=== PATIENT | male | born 2000 | race Caucasian/White ===

== ENCOUNTER 2020-03-18 15:21 | Emergency (ER) | payer SELFPAY ==
[~2020-03-18] VITALS: Ht 170.2 cm; Wt 63.5 kg
--- NOTE | 2020-03-18 16:04 | ED Lower Extremity ---
General Chief Complaint: Lower Extremity Stated Complaint: R ANKLE INJ Source: patient Exam Limitations: no limitations History of Present Illness Date Seen by Provider: Mar 18, 2020 Time Seen by Provider: 16:02 Initial Comments To ER with pain over the lateral aspect of the right foot. This began after he twisted his ankle while playing basketball yesterday. He has difficulty with ambulation since then. Onset: just prior to arrival Severity: moderate Pain/Injury Location: left foot Method of Injury: sports injury Modifying Factors: Worse With Movement Allergies and Home Medications Patient Home Medication List Home Medication List Reviewed: Yes Review of Systems Constitutional: see HPI EENTM: see HPI Respiratory: no symptoms reported Cardiovascular: no symptoms reported Genitourinary: no symptoms reported Musculoskeletal: see HPI Skin: no symptoms reported Psychiatric/Neurological: No Symptoms Reported Past Wrvgofm-Oojerr-Ciorin Hx Patient Social History Recent Foreign Travel: No Contact w/Someone Who Travel: No Physical Exam Vital Signs Vital Signs - First Documented 03/18/20 15:52 Temp 36.8 Pulse 84 Resp 18 B/P (MAP) 107/71 Capillary Refill : Height, Weight, BMI Height: '" Weight: lbs. oz. kg; BMI Method: General Appearance: WD/WN, no apparent distress Respiratory: no respiratory distress, no accessory muscle use Hips: bilateral hip non-tender, bilateral hip normal inspection, bilateral hip normal range of motion Legs: bilateral leg non-tender, bilateral leg normal inspection, bilateral leg normal range of motion Knees: bilateral knee non-tender, bilateral knee normal inspection, bilateral knee normal range of motion Ankles: bilateral ankle non-tender, bilateral ankle normal inspection, bilateral ankle normal range of motion; left ankle other (there is no tenderness to palpation over the right lateral malleolus no deformity. There is swelling over the dorsal aspect of the foot over the third fourth and fifth proximal metatarsals.) Feet: bilateral foot non-tender, bilateral foot normal inspection, bilateral foot normal range of motion, bilateral foot other (strong dorsalis pedis pulses palpable) Neurologic/Psychiatric: alert, normal mood/affect, oriented x 3 Skin: normal color, warm/dry Progress/Results/Core Measures Results/Orders My Orders Orders - ERIK SENIOR APRN Foot, Right, 3 View (03/18/20 16:01) Vital Signs/I&O 03/18/20 15:52 Temp 36.8 Pulse 84 Resp 18 B/P (MAP) 107/71 Departure Impression Primary Impression: Ankle sprain Qualified Codes: S93.401A - Sprain of unspecified ligament of right ankle, initial encounter Disposition: 01 HOME, SELF-CARE Condition: Stable Departure-Patient Inst. Decision time for Depature: 16:04 Patient Instructions: Ankle Sprain (DC) Add. Discharge Instructions: 1. Keep the foot elevated as much as possible for the next 2-3 days. Wear the brace for the next 2-3 days. Use the crutches as needed for pain control. When you are able to put weight on the foot without significant pain then you can stop using the crutches. Tylenol and ibuprofen for pain. All discharge instructions reviewed with patient and/or family. Voiced understanding. Work/School Note: Work Release Form Date Seen in the Emergency Department: Mar 18, 2020 Return to Work: Mar 19, 2020 ERIK SENIOR APRN Mar 18, 2020 16:04
--- NOTE | 2020-03-18 16:50 | Diagnostic Imaging Report ---
INDICATION: Injury, pain. FINDINGS: Three-view right foot showed no fracture, dislocation, or acute-appearing articular irregularity. No gas or foreign body. IMPRESSION: Unremarkable three-view right foot. Dictated by: Dictated on workstation # [id number]
== END 2020-03-18 16:52 | disposition home or self-care (01) ==
LOC: ER 15:25
DX: S93.492A Sprain of other ligament of left ankle, initial encounter (principal); X50.1XXA Overexertion from prolonged static or awkward postures, initial encounter; Y93.67 Activity, basketball
CPT/HCPCS: 73630; 99282; L4350

== ENCOUNTER 2020-06-25 13:25 | Emergency (ER) | payer SELFPAY ==
[~2020-06-25] VITALS: Ht 170 cm; Wt 61.0 kg
--- NOTE | 2020-06-25 13:58 | ED GI ---
General Chief Complaint: Chest Wall Stated Complaint: RIB AREA PAIN Nursing Triage Note: ARRIVED VIA AMB WITH COMPLAINTS OF LEFT LOWER CHEST PAIN THAT STARTED X1 WEEK AGO History of Present Illness Date Seen by Provider: Jun 25, 2020 Time Seen by Provider: 13:30 Initial Comments 19-year-old male presents for left upper abdominal pain. present for 1 week, hurts into ribs and unable to lie on his left side. Denies any injuries, fall, mono, n/v/d. He was doing heaving lifting at work, approximately 2 weeks ago. He has not taken any fccy-bbe-rimvptn medications for pain, no previous abdominal surgeries. He denies any reflux or pain when urinating. No pain radiating from the site and no CVA tenderness. Patient presented because he looked it up on internet and worried about his spleen. No history of COVID-19, Cough or URI. Timing/Duration: 1 Week Severity/Quality: Mild Location: LUQ Radiation: No Radiation Associated Symptoms: No Back Pain, No Fever/Chills, No Fatigue, No Headache, No Heartburn, No Nausea/Vomiting, No Shortness of Air; Swelling/Mass in Abdomen (LUQ) Allergies and Home Medications Allergies Coded Allergies: No Known Drug Allergies (Unverified , 06/25/20) Patient Home Medication List Home Medication List Reviewed: Yes Review of Systems Review of Systems Constitutional: no symptoms reported, see HPI; No weight gain, No weight loss Respiratory: See HPI; Denies Cough, Denies Shortness of Air; Other (left anterior lower rib pain) Cardiovascular: No Symptoms Reported, See HPI Gastrointestinal: See HPI, Abdominal Pain; Denies Constipated, Denies Diarrhea, Denies Nausea, Denies Poor Appetite, Denies Poor Fluid Intake, Denies Vomiting Musculoskeletal: no symptoms reported, see HPI Skin: no symptoms reported, see HPI All Other Systems Reviewed Negative Unless Noted: Yes Past [place]-Lnpgof-Wggfrv Hx Past Med/Social Hx: Reviewed Nursing Past Med/Soc Hx Patient Social History Alcohol Use: Denies Use Drug of Choice: POT Smoking Status: Current Everyday Smoker Type Used: Cigarettes 2nd Hand Smoke Exposure: Yes Recent Infectious Disease Expo: No Recent Hopitalizations: No Seasonal Allergies Seasonal Allergies: No Past Medical History Surgeries: No Respiratory: No Cardiac: No Neurological: No Genitourinary: No Gastrointestinal: No Musculoskeletal: No Endocrine: No HEENT: No Cancer: No Psychosocial: No Integumentary: No Physical Exam Vital Signs Vital Signs - First Documented 06/25/20 13:30 Temp 35.8 Pulse 100 Resp 16 B/P (MAP) 117/74 O2 Delivery Room Air Capillary Refill : Height/Weight/BMI Height: '" Weight: lbs. oz. kg; 21.00 BMI Method: General Appearance: WD/WN, no apparent distress HEENT: PERRL/EOMI, normal ENT inspection, TMs normal, pharynx normal Neck: non-tender, full range of motion, supple, normal inspection Respiratory: lungs clear, normal breath sounds, no respiratory distress Cardiovascular: normal peripheral pulses, regular rate, rhythm Gastrointestinal: normal bowel sounds, soft, tenderness (LUQ), hernia (questionable), mass (along left lower costal boarder) Extremities: normal range of motion, non-tender Back: normal inspection, no CVA tenderness; No muscle spasm, No vertebral tenderness Neurologic/Psychiatric: no motor/sensory deficits, alert, normal mood/affect, oriented x 3 Progress/Results/Core Measures Results/Orders My Orders Orders - VANESSA LUCAS Ct Abdomen/Pelvis Wo (06/25/20 13:45) Ibuprofen Tablet (Motrin Tablet) (06/25/20 14:28) Vital Signs/I&O 06/25/20 13:30 Temp 35.8 Pulse 100 Resp 16 B/P (MAP) 117/74 O2 Delivery Room Air Departure Impression Primary Impression: Abdominal muscle strain Qualified Codes: S39.011A - Strain of muscle, fascia and tendon of abdomen, initial encounter Additional Impression: Costochondral chest pain Disposition: 01 HOME, SELF-CARE Condition: Improved Departure-Patient Inst. Decision time for Depature: 14:15 Referrals: [facility] [place] NO,LOCAL PHYSICIAN (PCP) Primary Care Physician Patient Instructions: Pleuritic Chest Pain (DC), Costochondritis (DC) Add. Discharge Instructions: Alternate heat and ice to area of tenderness for 20 minutes at a time. Take ibuprofen 600 mg alternating with Tylenol 650 mg every 4 hours for pain. Follow-up at [facility] if symptoms are not improving or worsen. Return to the emergency department for new, urgent healthcare needs. All discharge instructions reviewed with patient and/or family. Voiced understanding. VANESSA LUCAS Jun 25, 2020 13:58
--- NOTE | 2020-06-25 14:06 | Diagnostic Imaging Report ---
EXAMINATION: CT Abdomen Pelvis without contrast. TECHNIQUE: Multiple contiguous axial images were obtained through the abdomen and pelvis without the use of intravenous contrast. All CT scans use one or more of the following dose optimizing techniques: automated exposure control, MA and/or KvP adjustment based on a patient size and exam type, or iterative reconstruction. HISTORY: Right upper quadrant pain COMPARISON: None available. FINDINGS: Limited views of the lower thorax are unremarkable. The liver is normal without focal lesion. There is no biliary ductal dilation. Gallbladder is normal. Pancreas is normal. Spleen is normal. Adrenal glands are normal. The kidneys are normal. There is no hydronephrosis. Urinary bladder is normal. Visualized bowel is normal in caliber without obstruction or inflammation. No free fluid or air. No abdominal or pelvic lymphadenopathy. Aorta is normal in caliber without aneurysm. There are no suspicious osseus lesions. No CT correlate is seen at the radiographic marker. IMPRESSION: 1. No acute abnormality in the abdomen or pelvis, no abnormality at the radiographic marker. Dictated by: Dictated on workstation # [id number]
[2020-06-25] MEDS ORDERED: IBUPROFEN 800 MG (MOTRIN) TAB PO STA (14:28)
== END 2020-06-25 14:37 | disposition home or self-care (01) ==
LOC: EDUNIT# 13:25 → ER 13:28
DX: S39.011A Strain of muscle, fascia and tendon of abdomen, initial encounter (principal); M94.0 Chondrocostal junction syndrome [Tietze]; F17.210 Nicotine dependence, cigarettes, uncomplicated; X50.0XXA Overexertion from strenuous movement or load, initial encounter
CPT/HCPCS: 74176; 99283

== ENCOUNTER 2021-02-17 10:16 | Emergency (ER) | payer SELFPAY ==
[~2021-02-17] VITALS: Ht 170 cm; Wt 58.9 kg
[2021-02-17] MEDS ORDERED: IBUPROFEN 600 MG (MOTRIN) TAB PO ONE (10:30)
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
[2021-02-17] MEDS ORDERED: AUGMENTIN 875 MG TAB (AMOXICILLIN/CLAVULANATE) PO SCH (10:45)
--- NOTE | 2021-02-17 10:58 | Diagnostic Imaging Report ---
EXAMINATION: Right hand at 10:38 a.m. INDICATION: Injury, hand pain. Three views were obtained. This exam is less than optimal due to slight motion artifact. There are no prior studies available for comparison. FINDINGS: There is no fracture, dislocation, or acute bony abnormality evident. The lateral view does show soft tissue edema along the dorsal aspect of the metacarpal heads. There is no radiopaque foreign body identified, however. IMPRESSION: There is soft tissue edema along the dorsal aspect of the metacarpal heads, but there is no evidence for a fracture or for a radiopaque foreign body. Dictated by: Dictated on workstation # [id number]
--- NOTE | 2021-02-17 11:00 | Diagnostic Imaging Report ---
INDICATION: Ankle pain after injury. EXAMINATION: Left ankle, 02/17/2021. FINDINGS: Three views of the ankle. There is soft tissue swelling laterally. No displaced fracture or dislocation. Ankle mortise and talar dome are intact. IMPRESSION: 1. Diffuse soft tissue swelling with no underlying fractures identified. If pain persists, 7-10 day follow-up recommended. Dictated by: Dictated on workstation # [id number]
[2021-02-17] MEDS ORDERED: VANCOMYCIN INJECTION 1,000 MG in NS (IVPB) 250 ML IV ONE (11:30)
[2021-02-17] MEDS ORDERED: NICOTINE 21 MG (NICODERM) PATCH TD ONE (11:30)
[2021-02-17 11:50] LABS: BASOPHILS % (AUTO) 0 % (0-10); EOSINOPHILS % (AUTO) 0 % (0-10); HEMATOCRIT 41 % (40-54); LYMPHOCYTES % (AUTO) 26 % (12-44); MEAN CORPUSCULAR HEMOGLOBIN 29 pg (25-34); MEAN CORPUSCULAR HGB CONC 34 g/dL (32-36); MEAN CORPUSCULAR VOLUME 83 fL (80-99); MEAN PLATELET VOLUME 9.1 fL (9.0-12.2); MONOCYTES % (AUTO) 14 % (0-12); NEUTROPHILS # (AUTO) 4.5 10^3/uL (1.8-7.8); NEUTROPHILS % (AUTO) 59 % (42-75); PLATELET COUNT 293 10^3/uL (130-400); WHITE BLOOD COUNT 7.7 10^3/uL (4.3-11.0)
[2021-02-17 12:01] LABS: POTASSIUM 3.8 MMOL/L (3.6-5.0)
[2021-02-17 12:02] LABS: CALCIUM 9.2 MG/DL (8.5-10.1)
[2021-02-17 12:07] LABS: CREATININE SERUM 0.83 MG/DL (0.60-1.30)
[2021-02-17 12:12] LABS: ERYTHROCYTE SEDIMENTATION RATE 1 MM/HR (0-15)
[2021-02-17 15:09] VITALS: BP 122/75
== END 2021-02-17 15:09 | disposition short-term general hospital (02) ==
LOC: EDUNIT# 10:16 → ER 10:17
DX: S91.012A Laceration without foreign body, left ankle, initial encounter (principal); L08.89 Other specified local infections of the skin and subcutaneous tissue; X50.0XXA Overexertion from strenuous movement or load, initial encounter
CPT/HCPCS: 36415; 73130; 73610; 80048; 85025; 85652; 86141

== ENCOUNTER 2021-05-03 14:04 | Emergency (ER) | payer SELFPAY ==
[~2021-05-03] VITALS: Ht 170 cm; Wt 59.0 kg
--- OUTSIDE RECORDS SUMMARY | 2021-05-03 14:13 | XMS REPORT | Clinical Summary ---
Author Author [facility] Organization [facility] Address Unknown Phone Unavailable Care Team Providers Care Television Schedule Coordinator Name Role Phone No Pcp, Na PCP Unavailable Source Comments Some departments are not documenting in the electronic medical record. If you d o not see the information that you expected, contact Release of Information in [facility] [place] Information Management department at [phone] for further assistan ce in locating additional records.[facility] Allergies No known active allergies Medications End Date Status Medication Sig Dispensed Refills Start Date Active oxyCODONE (ROXICODONE) 5 Take one 25 tablet 0 0 mg tablet tablet to two 1 tablets by mouth every 4 hours as needed for Pain Active acetaminophen (TYLENOL) Take two 90 tablet 0 325 mg tablet tablets by 1 mouth every 4 hours as needed. Active Problems Problem Noted Date Infection of hand 02/17/2021 Encounters Care Team Description Date Type Specialty Mary Pierce PA-C Zimmerman, Gina C, OT Infection of hand 03/01/2021 Occupational Rehabilitation Therapy Mary Pierce PA-C Infection of hand (Primary Dx) 03/01/2021 Office Visit Orthopedic Surgery 03/01/2021 Travel Misael Nava MD Degraff, Eric M, GENIA 02/17/2021 Anesthesia Event Cody Dickerson MD Infection of hand 02/17/2021 Hospital - Encounter 02/18/2021 Cody Dickerson MD SYNOVECTOMY METACARPOPHALANGEAL JOINT, D EBRIDEMENT WOUND DEEP 20 SQ CM OR LESS -UPPER EXTREMITY 02/17/2021 Surgery 02/17/2021 Travel from Last 3 Months Surgical History Surgery Date Site/Laterality Comments ARM DEBRIDEMENT 02/17/2021 Right SYNOVECTOMY ME TACARPOPHALANGEAL JOINT, DEBRIDEMENT WOUND DEEP 20 SQ CM OR LESS -UPPER EXTR EMITY performed by Cody Dickerson MD at [facility] OR Social History Date Tobacco Use Types Packs/Day Years Used Never Smoker Smokeless Tobacco: Never Used Comments Alcohol Use Standard Drinks/Week Never 0 (1 standard drink = 0.6 o z pure alcohol) Alcohol Habits Answer Date Recorded How often do you have a drink containing alcohol? Never 03/01/2021 How many drinks containing alcohol do you have on No t asked a typical day when you are drinking? How often do you have six or more drinks on one Not asked occasion? Comment: Not asked Sex Assigned at Date Recorded Not on file Last Filed Vital Signs Reading Time Taken Comments Vital Sign 106/55 02/18/2021 7:30 AM CDT Blood Pressure 60 02/18/2021 7:30 AM CDT Pulse 36.3 C (97.4 F) 02/18/2021 7:30 AM CDT Temperature - - Respiratory Rate 98% 02/18/2021 8:10 AM CDT Oxygen Saturation - - Inhaled Oxygen Concentration 61.2 kg (134 lb 14.7 oz) 02/17/2021 8:37 PM CDT Weight 170.2 cm (5' 7") 02/17/2021 8:37 PM CDT Height 21.13 02/17/2021 8:37 PM CDT Body Mass Index Plan of Treatment Health Maintenance Due Date Last Done Comments HPV VACCINES (1 - Male 2011 2-dose series) HIV SCREENING 2015 DTAP/TDAP VACCINES (1 - 2018 Tdap) HEPATITIS C SCREENING 2018 PHYSICAL (COMPREHENSIVE) 2018 EXAM INFLUENZA VACCINE 12/25/2020 MENINGOCOCCAL VACCINE Aged Out No longer eligib le based on patient's age to (ACWY,Menactra) complete this topic Procedures Comments Procedure Name Priority Date/Time Associated Diag nosis COVID-19 (SARS-COV-2) PCR Routine 02/17/2021 10:15 PM CDT ANKLE 2 VIEWS LEFT Routine 02/17/2021 8:25 PM CDT GRAM STAIN 02/17/2021 6:39 PM CDT CULTURE-FUNGAL,OTHER STAT 02/17/2021 Bite woun d of right hand 6:39 PM CDT with infection, initial encounter CULTURE-TB (AFB) STAT 02/17/2021 Bite wound of right hand 6:39 PM CDT with infection, initial encounter CULTURE-WOUND/TISSUE/FLUI STAT 02/17/2021 Bite wound of right hand D(AEROBIC 6:39 PM CDT with infection, ini tial ONLY)W/SENSITIVITY encounter CULTURE-ANAEROBIC STAT 02/17/2021 Bite wound o f right hand 6:39 PM CDT with infection, initial encounter DEBRIDEMENT WOUND DEEP 20 02/17/2021 Bite wound of right hand SQ CM OR LESS -UPPER 6:20 PM CDT with infection, initial EXTREMITY encounter TELEMETRY STRIPS-SCAN 02/17/2021 12:00 AM CDT from Last 3 Months Results * COVID-19 (SARS-COV-2) PCR (02/17/2021 10:15 PM CDT) COVID-19 FLOCKED SWAB MAIN LAB (SARS-CoV-2) NASOPHARYNGEAL PCR Source COVID-19 NOT DETECTED DN-NOT DETECTED MAIN LAB (SARS-CoV-2) Comment: PCR This assay is designed to detect the S and/or ORF1ab genes of SARS-CoV-2 using nucleic acid amplification. A "Not Detected" result does not preclude the possibility of SARS-CoV-2 infection since the adequacy of sample collection and/or low viral burden may result in the presence of viral nucleic acids below the analytical sensitivity of this test method. Test results should be used along with other clinical and laboratory data in making the diagnosis. Test parameters have not been validated for screening in asymptomatic patients.This test has not been FDA cleared or approved. This test is authorized for use under the FDA Emergency Use Authorization and performance characteristics have been verified by the [facility]. Fact sheet for providers: https://www.fda.gov/media/2691 85/download Fact sheet for patients: https://www.fda.gov/media/1362 87/download Specimen Flocked Swab - Nasopharyngeal Performing Organization Address [facility]/ZIP Code P tushar Number MAIN LAB [address] [place] [address] * ANKLE 2 VIEWS LEFT (02/17/2021 8:25 PM CDT) Modality Anatomical Region Laterality Computed Radiography Ankle Left Specimen Left Impressions [facility] RESULTS - 02/18/2021 8:58 AM CDT 1. No fracture or acute osseous abnorm ality. Ankle mortise, syndesmosis anterior abdominal maintained. 2. Marked lateral and anterior soft ti ssue swelling. Finalized by Garrison Villa M.D. on 02/18/2021 8:58 AM. Dictated by Garrison Villa M.D. on 02/18/2021 8:56 AM. Narrative [facility] RESULTS - 02/18/2021 8:58 AM CDT Exam: ANKLE 2 VIEWS LEFT CLINICAL INDICATION: 20 years, L ankle pain COMPARISON: None. Procedure Note Garrison Villa MD - 02/18/2021 Exam: ANKLE 2 VIEWS LEFT CLINICAL INDICATION: 20 years, L ankle pain COMPARISON: None. IMPRESSION 1. No fracture or acute osseous abnorma lity. Ankle mortise, syndesmosis anterior abdominal maintained. 2. Marked lateral and anterior soft tis jessy swelling. Finalized by Garrison Villa M.D. on 02/18/2021 8:58 AM. Dictated by Garrison Villa M.D. on 02/18/2021 8:56 AM. Performing Organization Address City/[facility]/ZIP Code P tushar Number [facility] * CULTURE-FUNGAL,OTHER (02/17/2021 6:39 PM CDT) Battery Name FUNGUS CULTURE [facility] Report Status FINAL 03/20/2021 [facility] Specimen FLOCKED SWAB HAND, RIGHT [facility] Description Special NONE [facility] Requests Culture NO GROWTH OF FUNGUS AT 4 WEEKS [facility] Specimen Fluid sample (specimen) - Structure of right hand (body structure) Performing Organization Address [facility]/ZIP Code P tushar Number MAIN LAB [address] [place] [address] * GRAM STAIN (02/17/2021 6:39 PM CDT) Battery Name GRAM STAIN [facility] Report Status FINAL 02/18/2021 [facility] Specimen FLOCKED SWAB HAND, RIGHT [facility] Description Special NONE [facility] Requests Gram Stain NO NEUTROPHILS SEEN [facility] Gram Stain NO ORGANISMS SEEN [facility] Specimen Flocked Swab - Hand, Right Performing Organization Address City/[facility]/ZIP Code P tushar Number [facility] MAIN [facility] [address] [place] [address] * CULTURE-TB (AFB) (02/17/2021 6:39 PM CDT) Battery Name AFB CULTURE [facility] Report Status FINAL 04/10/2021 [facility] Specimen FLOCKED SWAB HAND, RIGHT [facility] Description Special NONE [facility] Requests Culture NO GROWTH OF MYCOBACTERIA AT 6 [facility] WEEKS Specimen Fluid sample (specimen) - Structure of right hand (body structure) Performing Organization Address [facility] P tushar Number [facility] MAIN LAB [address] [place] [address] * CULTURE-WOUND/TISSUE/FLUID(AEROBIC ONLY)W/SENSITIVITY (02/17/2021 6:39 PM CDT) Battery Name ROUTINE CULTURE [facility] Report Status FINAL 02/22/2021 [facility] Specimen FLOCKED SWAB HAND, RIGHT ENRRIQUE MAIN LAB Description Special NONE [facility] Requests Direct Gram NO NEUTROPHILS SEEN [facility] Stain Direct Gram NO ORGANISMS SEEN [facility] Stain Culture NO GROWTH 5 DAYS [facility]IN [facility] Specimen Fluid sample (specimen) - Structure of right hand (body structure) Performing Organization Address [facility] P tushar Number [facility] MAIN LAB [address] [place] [address] * CULTURE-ANAEROBIC (02/17/2021 6:39 PM CDT) Battery Name ANAEROBE CULTURE [facility] Report Status FINAL 02/22/2021 [facility]IN [facility] Specimen FLOCKED SWAB HAND, RIGHT ENRRIQUE MAIN LAB Description Special NONE [facility] MAIN [facility] Requests Culture NO ANAEROBES ISOLATED [facility] Specimen Fluid sample (specimen) - Structure of right hand (body structure) Performing Organization Address [facility] P tushar Number [facility] MAIN LAB [address] [place] [address] * TELEMETRY STRIPS-SCAN (02/17/2021 12:00 AM CDT) Narrative 02/17/2021 12:00 AM CDT Ordered by an unspecified provider. from Last 3 Months Advance Directives Patient Cap Sewer Explanation Type Date Recorded Advance 02/18/2021 9:28 AM Directive/DPOA Date Inactivated Comments Code Status Date Activated 02/18/2021 7:03 PM Full Code 02/17/2021 7:16 PM Provider has discussed Code Status Yes w/Patient or Family? Care Teams Start Date End Date Television Schedule Coordinator Relationship Specialty 02/17/21 No Pcp, Na PCP - General
[2021-05-03 14:25] VITALS: BP 125/68
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
[2021-05-03] MEDS ORDERED: IBUPROFEN 600 MG (MOTRIN) TAB PO ONE (14:45)
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
== END 2021-05-03 15:12 | disposition home or self-care (01) ==
LOC: EDUNIT# 14:04 → ER 14:06
DX: S20.211A Contusion of right front wall of thorax, initial encounter (principal); X50.0XXA Overexertion from strenuous movement or load, initial encounter
CPT/HCPCS: 71046

== ENCOUNTER 2021-09-07 20:29 | Emergency (ER) | payer SELFPAY ==
[~2021-09-07] VITALS: Ht 170 cm; Wt 63.5 kg
[2021-09-07 20:35] VITALS: BP 110/78
[2021-09-07] MEDS ORDERED: IBUPROFEN 600 MG (MOTRIN) TAB PO ONE (20:45)
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
--- NOTE | 2021-09-07 20:56 | Diagnostic Imaging Report ---
INDICATION: Fall, left hand pain. EXAMINATION: Three views of the left hand. FINDINGS: Nondisplaced fracture of the proximal 3rd metacarpal. There is no intra-articular involvement. There is no unexpected radiopaque foreign body. IMPRESSION: 3rd metacarpal fracture. Dictated by: Dictated on workstation # [id number]
[2021-09-07] MEDS ORDERED: ACHD5005 PO (21:09)
[2021-09-07] MEDS ORDERED: IBUP-1773 PO (21:09)
== END 2021-09-07 21:19 | disposition home or self-care (01) ==
LOC: ER 20:29
DX: S62.393A Other fracture of third metacarpal bone, left hand, initial encounter for closed fracture (principal); W18.30XA Fall on same level, unspecified, initial encounter
CPT/HCPCS: 73130

== ENCOUNTER 2021-09-13 18:07 | Emergency (ER) | payer SELFPAY ==
[~2021-09-13] VITALS: Ht 170.2 cm; Wt 63.5 kg
[~2021-09-13 18:07] MED LIST: ACHD5005 PO; IBUP-1773 PO
[2021-09-13] MEDS ORDERED: NS IV 1000 ML 1,000 ML IV SCH (18:30)
[2021-09-13 18:36] LABS: BASOPHILS % (AUTO) 0 % (0-10); EOSINOPHILS # (AUTO) 0.2 10^3/uL (0.0-0.3); EOSINOPHILS % (AUTO) 2 % (0-10); HEMATOCRIT 46 % (40-54); HEMOGLOBIN 16.1 g/dL (13.3-17.7); LYMPHOCYTES # (AUTO) 1.6 10^3/uL (1.0-4.0); LYMPHOCYTES % (AUTO) 15 % (12-44); MEAN CORPUSCULAR HEMOGLOBIN 29 pg (25-34); MEAN CORPUSCULAR HGB CONC 35 g/dL (32-36); MEAN CORPUSCULAR VOLUME 82 fL (80-99); MEAN PLATELET VOLUME 9.2 fL (9.0-12.2); MONOCYTES # (AUTO) 0.8 10^3/uL (0.0-1.0); MONOCYTES % (AUTO) 7 % (0-12); NEUTROPHILS # (AUTO) 8.2 10^3/uL (1.8-7.8); NEUTROPHILS % (AUTO) 76 % (42-75); PLATELET COUNT 308 10^3/uL (130-400); WHITE BLOOD COUNT 10.8 10^3/uL (4.3-11.0)
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
[2021-09-13 18:57] LABS: ERYTHROCYTE SEDIMENTATION RATE 1 MM/HR (0-15)
--- NOTE | 2021-09-13 18:59 | Diagnostic Imaging Report ---
PROCEDURE: CT urinary tract, rule out kidney stone. TECHNIQUE: Multiple contiguous axial images were obtained through the abdomen and pelvis without the use of intravenous contrast. Auto Exposure Controls were utilized during the CT exam to meet ALARA standards for radiation dose reduction. INDICATION: Flank pain. COMPARISON: Prior examination from 06/25/2020. FINDINGS: Heart size is normal. The lung bases are clear. The liver is normal in size without focal lesions. Gallbladder is unremarkable. There is no biliary ductal dilatation. Spleen is normal. Pancreas and adrenal glands are unremarkable. Kidneys are normal in appearance. The aorta is nonaneurysmal. The bowel gas pattern is nonspecific. There is no free air. There is no ascites. There is no focal inflammatory changes. Bladder is normal. There is no pelvic mass, adenopathy or free fluid. IMPRESSION: Unremarkable noncontrast CT abdomen and pelvis. Specifically, there is no evidence of nephrolithiasis or obstructive uropathy. Dictated by: Dictated on workstation # [id number]
[2021-09-13 19:04] LABS: ALBUMIN 4.3 GM/DL (3.2-4.5); BILIRUBIN,TOTAL 1.1 MG/DL (0.1-1.0); CALCIUM 9.4 MG/DL (8.5-10.1); CREATININE SERUM 0.83 MG/DL (0.60-1.30); POTASSIUM 3.7 MMOL/L (3.6-5.0); TOTAL PROTEIN 7.1 GM/DL (6.4-8.2)
[2021-09-13 19:04] LABS: BILIRUBIN,URINE NEGATIVE (NEGATIVE); CLARITY,URINE CLOUDY; COLOR,URINE RED; GLUCOSE, URINE (UA) NEGATIVE (NEGATIVE); KETONES,URINE NEGATIVE (NEGATIVE); LEUKOCYTE ESTERASE ,URINE NEGATIVE (NEGATIVE); NITRITE,URINE NEGATIVE (NEGATIVE); PH,URINE 7.5 (5-9); PROTEIN,URINE 1+ (NEGATIVE)
[2021-09-13 19:15] LABS: BACTERIA,URINE TRACE /HPF; RBC,URINE >100 /HPF; SQUAMOUS EPITHELIAL CELL,UR RARE /HPF; URINE OTHER FEW SPERM /HPF; WBC,URINE RARE /HPF
[2021-09-13 19:17] LABS: AMPHETAMINE SCREEN, URINE NEGATIVE (NEGATIVE); BARBITURATE SCREEN URINE NEGATIVE (NEGATIVE); BENZODIAZEPINES SCREEN URINE NEGATIVE (NEGATIVE); CANNABINOID SCREEN, URINE POSITIVE (NEGATIVE); COCAINE SCREEN URINE NEGATIVE (NEGATIVE); METHADONE STAT NEGATIVE (NEGATIVE); METHAMPHETAMINE SCREEN URINE S NEGATIVE (NEGATIVE); OPIATE SCREEN URINE NEGATIVE (NEGATIVE); OXYCODONE STAT NEGATIVE (NEGATIVE); PROPOXYPHENE STAT NEGATIVE (NEGATIVE); TRICYCLIC ANTIDEPRESSANTS SCRE NEGATIVE (NEGATIVE)
[2021-09-13] MEDS ORDERED: cefTRIAXone 1 GM PRE-MIX 50 ML IV STA (19:24)
[2021-09-13] MEDS ORDERED: DOXY100T2 PO (19:40)
[2021-09-13 19:56] VITALS: BP 116/95
== END 2021-09-13 19:54 | disposition home or self-care (01) ==
LOC: EDUNIT# 18:07 → ER 18:09
DX: S62.303 Unspecified fracture of third metacarpal bone, left hand (principal); R31.0 Gross hematuria; Z87.891 Personal history of nicotine dependence; W18.30XD Fall on same level, unspecified, subsequent encounter
CPT/HCPCS: 36415; 74176; 80053; 80306; 81000; 82550; 82553; 83874; 85025; 85652; 86141; 87491; 87591

== ENCOUNTER 2021-11-25 01:52 | Emergency (ER) | payer SELFPAY ==
[~2021-11-25 01:52] MED LIST changes: +DOXY100T2 PO
[2021-11-25 02:02] VITALS: BP 117/94
--- NOTE | 2021-11-25 02:11 | ED General ---
General Chief Complaint: Foreign Body Stated Complaint: FB IN THROAT Nursing Triage Note: PT REPORTS TWO NIGHT AGO HE USED HIS TEETH TO TEAR PACKING TAPE AND A PIECE OF THE TAPE CAME OFF AND IS NOW STUCK IN HIS THROAT. DENIES TROUBLE BREATHING. REPORTS HE IS ABLE TO EAT AND DRINK WITHOUT ISSUES. REPORTS HE CAN FEEL IT SOMETIMES WHEN HE SWALLOWS. DENIES THROAT PAIN Source of Information: Patient Exam Limitations: No Limitations History of Present Illness Date Seen by Provider: Nov 25, 2021 Time Seen by Provider: 02:01 Initial Comments Here with report of foreign body sensation in the throat after tearing packing tape with his teeth. This occurred on Saturday night, 2 nights ago. He be lieves that he may have swallowed or breathed in a piece of the tape and that stuck to the upper part of his throat. States he feels like he has to cough but cannot get it out. Also reports he is able to eat or drink but he can feel it when he swallows. Denies others. States that it was freaking him out at work tonight and his boss told him to go get it checked out. Timing/Duration: 2-3 Days Severity: Mild Associated Systoms: Cough Allergies and Home Medications Allergies Coded Allergies: No Known Drug Allergies (Unverified , 06/25/20) Patient Home Medication List Home Medication List Reviewed: Yes Doxycycline Hyclate (Doxycycline Hyclate) 100 Mg Tablet, 100 MG PO BID Prescribed by: CAN RENEE on 09/13/211939 Hydrocodone/Acetaminophen (Hydrocodone-Acetamin 5-325 mg) 1 Each Tablet, 1 TAB PO Q4H PRN for PAIN-MODERATE (5-7) Prescribed by: ELVIA ARAYA on 09/07/212109 Ibuprofen (Ibuprofen) 600 Mg Tablet, 600 MG PO Q8H Prescribed by: ELVIA ARAYA on 09/07/212108 Review of Systems Review of Systems Constitutional: No chills, No fever EENTM: throat pain; No nose congestion Respiratory: cough; No short of breath Cardiovascular: No chest pain, No edema Gastrointestinal: No nausea; vomiting (After coughing sometimes) Psychiatric/Neurological: Anxiety; Denies Weakness Past Ateseff-Vargpf-Jygcfp Hx Patient Social History Tobacco Use?: Yes Smoking Status: Current Everyday Smoker Substance use?: No Alcohol Use?: Yes Alcohol Frequency: Once in a while Seasonal Allergies Seasonal Allergies: No Past Medical History Surgery/Hospitalization HX: right hand surgery. Surgeries: No Respiratory: No Cardiac: No Neurological: No Genitourinary: No Gastrointestinal: No Musculoskeletal: No Endocrine: No HEENT: No Cancer: No Psychosocial: No Integumentary: No Family Medical History Reviewed Nursing Family Hx No Pertinent Family Hx Physical Exam Vital Signs Vital Signs - First Documented 11/25/21 02:02 Temp 36.2 Pulse 105 Resp 18 B/P (MAP) 117/94 (102) Pulse Ox 99 O2 Delivery Room Air O2 Flow Rate 99.00 Capillary Refill : Height, Weight, BMI Height: '" Weight: lbs. oz. kg; 21.00 BMI Method: General Appearance: WD/WN, Anxious HEENT: PERRL/EOMI, Pharyngeal Erythema; No Tonsillar Exudate; Other (Evaluation of the pharynx shows no foreign bodies. I am able to see to the epiglottis area during exam of the pharynx using tongue blade. No obvious foreign body.) Neck: Full Range of Motion, Normal Inspection, Non Tender, Supple Respiratory: Lungs Clear, Normal Breath Sounds Cardiovascular: Regular Rate, Rhythm, No Murmur Neurologic/Psychiatric: Alert, Oriented x3 Progress/Results/Core Measures Suspected Sepsis SIRS Temperature: Pulse: 105 Respiratory Rate: 18 Blood Pressure 117 /94 Mean: 102 Results/Orders My Orders Orders - ANTHONY COLLINS MD Chest Pa/Lat (2 View) (11/25/21 02:08) Vital Signs/I&O 11/25/21 11/25/21 02:02 02:02 Temp 36.2 Pulse 105 Resp 18 B/P (MAP) 117/94 (102) Pulse Ox 99 O2 Delivery Room Air Room Air O2 Flow Rate 99.00 Capillary Refill : Blood Pressure Mean: 102 Progress Note : Progress Note Seen and evaluated. We will get two-view chest x-ray just to evaluate for obstructive lung symptoms or infiltrate. Patient reassured after a discussed with him the very low likelihood that tape would actually stick to the mucous membranes. He agrees with chest x-ray. Monitor patient. 0228: Patient tolerating fluids and is eating ice without difficulty. Reassured after chest x-ray. Discharged home with return precautions. Patient verbalized unde rstanding instructions and agreement with plan. Diagnostic Imaging Diagonstic Imaging: Xray Plain Films/CT/US/NM/MRI: chest Comments 2 view chest x-ray shows no acute findings. Reviewed by me. Reviewed: Reviewed by Me Departure Impression Primary Impression: Foreign body sensation in throat Disposition: 01 HOME, SELF-CARE Condition: Improved Departure-Patient Inst. Decision time for Depature: 02:28 Referrals: NO,LOCAL PHYSICIAN (PCP/Family) Primary Care Physician Patient Instructions: Swallowed Objects, Adult (DC) Add. Discharge Instructions: All discharge instructions reviewed with patient and/or family. Voiced understanding. No obvious findings of foreign body noted on x-ray. You may have sensation related to a scratch or other injury but this should improve over the next few days. Continue to eat and drink as normal. You may take Tylenol and/or ibuprofen as needed for pain per package directions. Follow-up with your doctor in a few days for recheck. Return for worse pain, breathing problems, cough, fever or other concerns as needed. ANTHONY COLLINS MD Nov 25, 2021 02:11
--- NOTE | 2021-11-25 06:36 | Diagnostic Imaging Report ---
INDICATION: foreign body concerns, cough COMPARISON: 05/03/2021 FINDINGS: Frontal and lateral views of the chest demonstrate normal heart size and pulmonary vascularity. The lungs are clear. There are no signs of infiltrate, pleural effusions or pneumothoraces. The visualized osseous structures show no acute abnormalities. IMPRESSION: 1. No acute process. No signs of infiltrates, effusions or pneumothoraces. Dictated by: Dictated on workstation # [id number]
== END 2021-11-25 02:34 | disposition home or self-care (01) ==
LOC: EDUNIT# 01:52 → ER 01:56
DX: R09.89 Other specified symptoms and signs involving the circulatory and respiratory systems (principal); F17.200 Nicotine dependence, unspecified, uncomplicated
CPT/HCPCS: 71046; 99282

== ENCOUNTER 2021-12-21 21:02 | Emergency (ER) | payer SELFPAY ==
[~2021-12-21] VITALS: Ht 167.7 cm; Wt 58.9 kg
[2021-12-21 21:10] VITALS: BP 94/66
--- NOTE | 2021-12-21 21:21 | ED General ---
General Chief Complaint: Dizziness/Syncope Stated Complaint: LIGHT HEADED,DIZZY Nursing Triage Note: c/o dizziness, frontal headache since 299. Source of Information: Patient Exam Limitations: No Limitations (DENG JAMES) History of Present Illness Date Seen by Provider: Dec 21, 2021 Time Seen by Provider: 21:18 Initial Comments Patient is a 21-year-old male who presents to ED for headache, lightheadedness and some dizziness. Symptoms started around 3:00 early this morning. Patient states he got off work and had to leave work early. States he has not been sleeping as well and tired. Patient went home and slept and scheduled to work this evening. Patient requesting work note. He has no vomiting, visual changes, unilateral muscle weakness or sensory changes, ear pain, ear ringing, diarrhea, fever, neck pain, cough, shortness of breath. Patient with a steady gait here. No known medical problems. History of marijuana use. (DENG JAMES) Allergies and Home Medications Allergies Coded Allergies: No Known Drug Allergies (Unverified , 06/25/20) Patient Home Medication List Home Medication List Reviewed: Yes (DENG JAMES) Discontinued Medications Doxycycline Hyclate (Doxycycline Hyclate) 100 Mg Tablet, 100 MG PO BID Discontinued Reason: No Longer Taking Prescribed by: CAN RENEE on 09/13/211939 Last Action: Discontinued Hydrocodone/Acetaminophen (Hydrocodone-Acetamin 5-325 mg) 1 Each Tablet, 1 TAB PO Q4H PRN for PAIN-MODERATE (5-7) Discontinued Reason: No Longer Taking Prescribed by: ELVIA ARAYA on 09/07/212109 Last Action: Discontinued Ibuprofen (Ibuprofen) 600 Mg Tablet, 600 MG PO Q8H Discontinued Reason: No Longer Taking Prescribed by: ELVIA ARAYA on 09/07/212108 Last Action: Discontinued Review of Systems Review of Systems Constitutional: No chills; dizziness; No fever, No malaise, No weakness EENTM: No ear discharge, No hearing loss, No ear pain, No blurred vision, No mouth pain, No mouth swelling Cardiovascular: No chest pain, No edema Gastrointestinal: No abdominal pain, No diarrhea, No nausea, No vomiting Genitourinary: No decreased output, No discharge Musculoskeletal: No back pain, No joint pain Skin: No change in color, No change in hair/nails Psychiatric/Neurological: Headache, Other (dizziness) (DENG JAMES) All Other Systems Reviewed Negative Unless Noted: Yes (DENG JAMES) Past Zrnqipa-Mqhcnj-Kreetv Hx Patient Social History Tobacco Use?: Yes Substance use?: No Alcohol Use?: Yes Alcohol Frequency: Once in a while Pt feels they are or have been: No (DENG JAMES) Seasonal Allergies Seasonal Allergies: No (DENG JAMES) Past Medical History Surgery/Hospitalization HX: right hand surgery. Surgeries: No Respiratory: No Cardiac: No Neurological: No Genitourinary: No Gastrointestinal: No Musculoskeletal: No Endocrine: No HEENT: No Cancer: No Psychosocial: No Integumentary: No (DENG JAMES) Family Medical History No Pertinent Family Hx (DENG JAMES) Physical Exam Vital Signs Vital Signs - First Documented 12/21/21 21:10 Temp 36.5 Pulse 114 Resp 16 B/P (MAP) 94/66 (75) Pulse Ox 98 O2 Delivery Room Air (VÍCTOR,CAN K DO) Vital Signs Capillary Refill : Less Than 3 Seconds (DENG JAMES) Height, Weight, BMI Height: '" Weight: lbs. oz. kg; 20.00 BMI Method: General Appearance: No Apparent Distress, WD/WN Eyes: Bilateral Eye Normal Inspection, Bilateral Eye PERRL, Bilateral Eye EOMI HEENT: PERRL/EOMI, TMs Normal, Normal ENT Inspection, Pharynx Normal Neck: Full Range of Motion, Normal Inspection, Non Tender, Supple Respiratory: Chest Non Tender, Lungs Clear, Normal Breath Sounds, No Accessory Muscle Use, No Respiratory Distress Cardiovascular: Regular Rate, Rhythm, No Edema, No Gallop, No JVD Gastrointestinal: Normal Bowel Sounds, No Organomegaly, No Pulsatile Mass, Non Tender, Soft Back: Normal Inspection, No CVA Tenderness, No Vertebral Tenderness Extremity: Normal Capillary Refill, Normal Inspection, Normal Range of Motion, Non Tender, No Calf Tenderness Neurologic/Psychiatric: Alert, Oriented x3, No Motor/Sensory Deficits, Normal Mood/Affect, parts room assistant II-XII Norm as Tested Skin: Normal Color, Warm/Dry (DENG JAMES) Progress/Results/Core Measures Suspected Sepsis SIRS Temperature: Pulse: 114 Respiratory Rate: 16 Blood Pressure 94 /66 Mean: 75 (DENG JAMES) Results/Orders Vital Signs/I&O 12/21/21 21:10 Temp 36.5 Pulse 114 Resp 16 B/P (MAP) 94/66 (75) Pulse Ox 98 O2 Delivery Room Air (CAN RENEE DO) Vital Signs/I&O Capillary Refill : Less Than 3 Seconds (DENG JAMES) Blood Pressure Mean: 75 Departure Communication (PCP) Patient reports dizzy, lightheadedness and fatigue. States he works nights and states he does not think he can go to work today. He has no flulike symptoms. No meningeal signs. No focal neural deficits. Denies worst headache of his life. Denies taking thing for his headache. Patient is playing on his phone. No vomiting, diarrhea, chest pain. No known cardiac history. Patient appears well and nontoxic. Patient was wanting a work note. Did recommend check of his lab work, COVID. Patient refused. Refused anything for his headache (DENG JAMES) Impression Primary Impression: Dizzy Disposition: 01 HOME, SELF-CARE Condition: Stable Departure-Patient Inst. Decision time for Depature: 21:19 (DENG JAMES) Referrals: [facility],LOCAL PHYSICIAN (PCP) Primary Care Physician Patient Instructions: Fatigue (DC) Add. Discharge Instructions: Recommend rest All discharge instructions reviewed with patient and/or family. Voiced understanding. Work/School Note: Work Release Form Date Seen in the Emergency Department: Dec 21, 2021 Return to Work: Dec 23, 2021 ATTENDING PHYSICIAN NOTE: I WAS PHYSICALLY PRESENT ER PHYSICIAN, BUT I WAS NOT INVOLVED IN ANY DECISION MAKING OR ANY CARE OF THIS PT, AND I AM NOT COLLABORATING PHYSICIAN. (CAN RENEE DO) DENG JAMES Dec 21, 2021 21:21 CAN RENEE DO Dec 23, 2021 02:12
== END 2021-12-21 21:24 | disposition home or self-care (01) ==
LOC: EDUNIT# 21:02 → ER 21:06
DX: R42 Dizziness and giddiness (principal)
CPT/HCPCS: 99281

== ENCOUNTER 2021-12-24 01:15 | Emergency (ER) | payer SELFPAY ==
--- NOTE | 2021-12-24 02:21 | ED General ---
General Chief Complaint: Abdominal/GI Problems Stated Complaint: N/V,HEADACHE,ABD PAIN Nursing Triage Note: PT ARRIVAL TO ER IN NO OBVIOUS DISTRESS. PT STATES THAT HE VOMITED ONCE, AND NEEDS A WORK NOTE FOR MISSING WORK OR HE WILL LOSE HIS JOB. PT STATES THAT HE FEELS FINE, HAS NORMAL BM, AND ONLY VOMITED ONCE AFTER EATING KAYLEN'S. Allergies and Home Medications Allergies Coded Allergies: No Known Drug Allergies (Unverified , 06/25/20) Patient Home Medication List Discontinued Medications Doxycycline Hyclate (Doxycycline Hyclate) 100 Mg Tablet, 100 MG PO BID Discontinued Reason: No Longer Taking Prescribed by: CAN RENEE on 09/13/21 194 Hydrocodone/Acetaminophen (Hydrocodone-Acetamin 5-325 mg) 1 Each Tablet, 1 TAB PO Q4H PRN for PAIN-MODERATE (5-7) Discontinued Reason: No Longer Taking Prescribed by: ELVIA ARAYA on 09/07/212109 Ibuprofen (Ibuprofen) 600 Mg Tablet, 600 MG PO Q8H Discontinued Reason: No Longer Taking Prescribed by: ELVIA ARAYA on 09/07/212108 Past Wkgwuks-Pktklb-Uennch Hx Patient Social History Tobacco Use?: Yes Tobacco type used: Cigarettes Smoking Status: Former Smoker Use of E-Cig and/or Vaping dev: Yes E-Cig or Vaping type used: Nicotine Use of E-Cig and/or Vaping Reece: Current Everyday User Substance use?: No Alcohol Use?: No Pt feels they are or have been: No Immunizations Up To Date Influenza Vaccine Up-to-Date: No; Not Current First/Initial COVID19 Vaccinat: NONE Second COVID19 Vaccination Abdoulaye: NONE Third COVID19 Vaccination Date: NONE COVID19 Vaccine Facility Service Associate: NOT GETTING IT Seasonal Allergies Seasonal Allergies: No Past Medical History Surgery/Hospitalization HX: right hand surgery. Surgeries: No Respiratory: No Cardiac: No Neurological: No Genitourinary: No Gastrointestinal: No Musculoskeletal: No Endocrine: No HEENT: No Cancer: No Psychosocial: No Integumentary: No Family Medical History No Pertinent Family Hx Physical Exam Vital Signs Vital Signs - First Documented 12/24/21 01:42 Temp 36.8 Pulse 70 Resp 14 B/P (MAP) 107/88 (94) Pulse Ox 96 O2 Delivery Room Air Capillary Refill : Less Than 3 Seconds Height, Weight, BMI Height: '" Weight: lbs. oz. kg; 20.00 BMI Method: Progress/Results/Core Measures Suspected Sepsis SIRS Temperature: Pulse: 70 Respiratory Rate: 14 Blood Pressure 107 /88 Mean: 94 Results/Orders Vital Signs/I&O 12/24/21 01:42 Temp 36.8 Pulse 70 Resp 14 B/P (MAP) 107/88 (94) Pulse Ox 96 O2 Delivery Room Air Capillary Refill : Less Than 3 Seconds Blood Pressure Mean: 94 Departure Impression Primary Impression: General medical exam Disposition: 01 HOME, SELF-CARE Condition: Stable Departure-Patient Inst. Decision time for Depature: 02:20 Referrals: NO,LOCAL PHYSICIAN (PCP/Family) Primary Care Physician Patient Instructions: Yearly Physical for Adults Add. Discharge Instructions: FOLLOW UP WITH DR OF CHOICE NEEDED All discharge instructions reviewed with patient and/or family. Voiced understanding. CAN RENEE DO Dec 24, 2021 02:21
[2021-12-24 02:28] VITALS: BP 107/88
== END 2021-12-24 02:33 | disposition home or self-care (01) ==
LOC: EDUNIT# 01:15 → ER 01:17
DX: Z00.00 Encounter for general adult medical examination without abnormal findings (principal); F17.290 Nicotine dependence, other tobacco product, uncomplicated; Z28.310 Unvaccinated for COVID-19
CPT/HCPCS: 99283

== ENCOUNTER 2023-01-07 13:00 | Emergency (ER) | payer SELFPAY ==
[~2023-01-07] VITALS: Ht 170 cm; Wt 60.0 kg
[2023-01-07] MEDS ORDERED: Tetanus/Diphtheria/Pertussis (Acell) ADULT Vaccine 0.5 ML IM ONE (13:15)
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
--- NOTE | 2023-01-07 13:34 | Diagnostic Imaging Report ---
INDICATION: Fall with bilateral hand pain. TECHNIQUE: AP, oblique and lateral views of both hands are obtained. FINDINGS: No acute fracture or dislocation is identified. No abnormal lytic or sclerotic focus is seen, and there is no radiopaque foreign body. IMPRESSION: No acute abnormality. Dictated by: Dictated on workstation # [id number]
--- NOTE | 2023-01-07 13:34 | Diagnostic Imaging Report ---
INDICATION: Fall, with left knee injury and pain. AP, oblique, and lateral views of left knee are obtained. FINDINGS: No acute fracture or dislocation is identified. No abnormal lytic or sclerotic focus is seen, and there is no radiopaque foreign body. IMPRESSION: No acute abnormality. Dictated by: Dictated on workstation # [id number]
[2023-01-07] MEDS ORDERED: CEPH500T PO (13:36)
[2023-01-07 13:47] VITALS: BP 165/105
== END 2023-01-07 13:44 | disposition home or self-care (01) ==
LOC: EDUNIT# 13:00 → ER 13:03
DX: S05.12XA Contusion of eyeball and orbital tissues, left eye, initial encounter (principal); S60.511S Abrasion of right hand, sequela; R21 Rash and other nonspecific skin eruption; Z23 Encounter for immunization; V18.9XXA Unspecified pedal cyclist injured in noncollision transport accident in traffic accident, initial encounter; Y92.410 Unspecified street and highway as the place of occurrence of the external cause
CPT/HCPCS: 73562; 90715

== ENCOUNTER 2023-01-10 16:22 | Emergency (ER) | payer SELFPAY ==
[~2023-01-10 16:22] MED LIST changes: +CEPH500T PO
[2023-01-10 16:31] VITALS: BP 128/78
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
== END 2023-01-10 16:45 | disposition home or self-care (01) ==
LOC: EDUNIT# 16:22 → ER 16:25
DX: Z48.00 Encounter for change or removal of nonsurgical wound dressing (principal); F17.290 Nicotine dependence, other tobacco product, uncomplicated; Z28.310 Unvaccinated for COVID-19
CPT/HCPCS: 99283